=== PATIENT | female | born 1990 | race Caucasian/White ===

== ENCOUNTER 2017-11-09 03:05 | Emergency (ER) | payer MEDICAID ==
[~2017-11-09] VITALS: Ht 165.1 cm; Wt 76.4 kg
[2017-11-09] MEDS ORDERED: BACTRIM DS1 TAB PO (06:51)
[2017-11-09] MEDS ORDERED: CLARITHROMYC500 MG PO (06:51)
[2017-11-09 07:03] VITALS: BP 91/52
== END 2017-11-09 07:57 | disposition home or self-care (01) ==
LOC: ED 03:05
DX: J18.9 Pneumonia, unspecified organism (principal); L02.11 Cutaneous abscess of neck

== ENCOUNTER 2018-01-12 20:03 | Emergency (ER) | payer MEDICAID ==
[~2018-01-12] VITALS: Ht 165.1 cm; Wt 77.2 kg
[~2018-01-12 20:03] MED LIST: BACTRIM DS1 TAB PO; CLARITHROMYC500 MG PO
[2018-01-12] MEDS ORDERED: LEVOTHYROXINE175 MCG PO (20:16)
[2018-01-12 20:43] LABS: IMMATURE GRANULOCYTES 0.4 % (0.0-5.0); MEAN CELL VOLUME 84.7 fL CALC (80.0-100.0); NEUT# 11.29 thou/uL (2.00-7.15); RED BLOOD COUNT 4.97 mill/uL (4.20-5.60); RED CELL DISTRI WIDTH 15.3 % (11.5-15.5)
[2018-01-12 20:48] LABS: HEMATOCRIT 42.1 % (37.0-47.0); HEMOGLOBIN 13.9 g/dl (12.0-16.0)
[2018-01-12 20:48] LABS: URINE BILIRUBIN - DIPSTICK NEGATIVE (NEGATIVE); URINE BLOOD DIPSTICK NEGATIVE (NEGATIVE); URINE COLOR YELLOW; URINE GLUCOSE - DIPSTICK NEGATIVE (NEGATIVE); URINE KETONE NEGATIVE (NEGATIVE); URINE LEUK ESTERASE TRACE (NEGATIVE); URINE NITRITE - DIPSTICK NEGATIVE (Negative); URINE PH 7.5 (4.5-8.0); URINE PROTEIN - DIPSTICK 30 mg/dL (NEG-TRACE); URINE SPECIFIC GRAVITY 1.015
[2018-01-12 20:51] LABS: URINE CLARITY CLEAR; URINE RBC 0-2 RBC/hpf (0-5); URINE SQUAMOUS EPITHELIAL CELL FEW EPI/hpf (0-FEW)
[2018-01-12 20:53] LABS: INFLUENZA A NONE DETECTED (NONE DETECT); INFLUENZA B NONE DETECTED (NONE DETECT)
[2018-01-12 20:56] LABS: ALBUMIN 4.3 g/dL (3.2-5.0); ALKALINE PHOSPHATASE 88 u/l (38-126); ANION GAP 17 (6-22 (CALC)); BILIRUBIN, TOTAL 0.3 mg/dL (0.0-1.4); BUN 18 mg/dL (7-17); BUN/CREATININE RATIO 20 (12-20 (CALC)); CARBON DIOXIDE 24 mmol/l (22-30); CHLORIDE 104 mmol/l (95-108); CREATININE 0.9 mg/dL (0.5-1.0); GFR > 60 ML/MIN (>=60 (CALC)); GFR FOR AFR.AMER. > 60 ML/MIN (>=60 (CALC)); POTASSIUM 4.6 mmol/l (3.5-5.1); SGOT/AST 24 u/l (14-36); SGPT/ALT 32 u/l (9-52); SODIUM 141 mmol/l (137-146); TOTAL PROTEIN 7.6 g/dL (6.3-8.2)
[2018-01-12 21:52] VITALS: BP 114/67
== END 2018-01-12 22:07 | disposition home or self-care (01) ==
LOC: ED 20:03
PROVIDERS: Emergency Medicine
DX: J06.9 Acute upper respiratory infection, unspecified (principal); M79.1 Myalgia; F17.210 Nicotine dependence, cigarettes, uncomplicated; R10.9 Unspecified abdominal pain; J02.9 Acute pharyngitis, unspecified; R05 Cough; R09.89 Other specified symptoms and signs involving the circulatory and respiratory systems

== ENCOUNTER 2018-05-21 20:45 | Emergency (ER) | payer OTHER ==
[~2018-05-21] VITALS: Ht 165.1 cm; Wt 79.5 kg
[~2018-05-21 20:45] MED LIST changes: +LEVOTHYROXINE175 MCG PO
[2018-05-21] MEDS ORDERED: VOLTAREN - GENE75 MG PO (21:01)
[2018-05-21] MEDS ORDERED: AMOXICILLIN500 MG PO (21:01)
[2018-05-21 21:30] VITALS: BP 130/83
== END 2018-05-21 21:30 | disposition home or self-care (01) ==
LOC: ED 20:45
DX: K02.9 Dental caries, unspecified (principal); K04.7 Periapical abscess without sinus; F17.210 Nicotine dependence, cigarettes, uncomplicated; K08.89 Other specified disorders of teeth and supporting structures

== ENCOUNTER 2018-12-11 14:58 | Emergency (ER) | payer OTHER ==
[~2018-12-11] VITALS: Ht 165.1 cm; Wt 75.0 kg
[~2018-12-11 14:58] MED LIST changes: +AMOXICILLIN500 MG PO; +VOLTAREN - GENE75 MG PO
[2018-12-11] MEDS ORDERED: [UNRECOGNIZED DRUG - OTHER] EX (15:33)
[2018-12-11] MEDS ORDERED: BENADRYL 50MG C50 MG PO (15:33)
[2018-12-11 15:39] LABS: IMMATURE GRANULOCYTES 0.4 % (0.0-5.0); MEAN CELL VOLUME 85.9 fL CALC (80.0-100.0); MEAN CORPUSCULAR HGB 28.6 pG CALC (26.0-32.0); MEAN CORPUSCULAR HGB CONC 33.3 g/L CALC (32.0-36.0); NEUT# 5.06 thou/uL (2.00-7.15); RED BLOOD COUNT 4.12 mill/uL (4.20-5.60); RED CELL DISTRI WIDTH 14.1 % (11.5-15.5)
[2018-12-11 15:42] LABS: HEMATOCRIT 35.4 % (37.0-47.0); HEMOGLOBIN 11.8 g/dl (12.0-16.0)
[2018-12-11 15:57] VITALS: BP 116/66
[2018-12-11] MEDS ORDERED: CEPHALEXIN500 M1 PO (16:01)
[2018-12-11 16:09] LABS: ALBUMIN 4.1 g/dL (3.2-5.0); ALKALINE PHOSPHATASE 72 u/l (38-126); ANION GAP 12 (6-22 (CALC)); BILIRUBIN, TOTAL 0.4 mg/dL (0.0-1.4); BUN 9 mg/dL (7-17); BUN/CREATININE RATIO 15 (12-20 (CALC)); CARBON DIOXIDE 25 mmol/l (22-30); CHLORIDE 107 mmol/l (95-108); CREATININE 0.6 mg/dL (0.5-1.0); GFR > 60 ML/MIN (>=60 (CALC)); GFR FOR AFR.AMER. > 60 ML/MIN (>=60 (CALC)); POTASSIUM 4.4 mmol/l (3.5-5.1); SGOT/AST 20 u/l (14-36); SODIUM 139 mmol/l (137-146); TOTAL PROTEIN 7.4 g/dL (6.3-8.2)
[2018-12-11 16:22] LABS: PROTHROMBIN TIME 10.1 SECONDS (9.0-12.5)
== END 2018-12-11 16:45 | disposition home or self-care (01) ==
LOC: ED 14:58
PROVIDERS: Emergency Medicine
DX: B85.0 Pediculosis due to Pediculus humanus capitis (principal); T14.8XXA Other injury of unspecified body region, initial encounter; F17.210 Nicotine dependence, cigarettes, uncomplicated; X58.XXXA Exposure to other specified factors, initial encounter

== ENCOUNTER 2018-12-27 18:08 | Emergency (ER) | payer OTHER ==
[~2018-12-27] VITALS: Ht 165.1 cm; Wt 70.0 kg
[~2018-12-27 18:08] MED LIST changes: +BENADRYL 50MG C50 MG PO; +CEPHALEXIN500 M1 PO; +[UNRECOGNIZED DRUG - OTHER] EX
[2018-12-27] MEDS ORDERED: AMPHETAMINE PO (18:34)
[2018-12-27] MEDS ORDERED: DEX PO (18:34)
[2018-12-27] MEDS ORDERED: PERMETHRIN5 % EX (18:38)
[2018-12-27] MEDS ORDERED: LEVOTHYROXIN200 MC2 PO (18:49)
[2018-12-27 19:00] VITALS: BP 128/66
[2018-12-27] MEDS ORDERED: BACTROBAN TOP (19:01)
== END 2018-12-27 19:00 | disposition home or self-care (01) ==
LOC: ED 18:08
DX: B85.0 Pediculosis due to Pediculus humanus capitis (principal); B86 Scabies; F17.200 Nicotine dependence, unspecified, uncomplicated

== ENCOUNTER 2018-12-31 15:19 | Emergency (ER) | payer OTHER ==
[~2018-12-31] VITALS: Ht 165.1 cm; Wt 65.0 kg
[~2018-12-31 15:19] MED LIST changes: +AMPHETAMINE PO; +BACTROBAN TOP; +DEX PO; +LEVOTHYROXIN200 MC2 PO; +PERMETHRIN5 % EX
[2018-12-31] MEDS ORDERED: LEVOTHYROXIN200 MCG PO (15:39)
[2018-12-31] MEDS ORDERED: PAROXETINE HCL30 MG PO (16:07)
[2018-12-31 16:10] VITALS: BP 118/66
== END 2018-12-31 16:10 | disposition home or self-care (01) ==
LOC: ED 15:19
DX: Z76.0 Encounter for issue of repeat prescription (principal); F17.200 Nicotine dependence, unspecified, uncomplicated; F41.9 Anxiety disorder, unspecified; Z91.19 Patient's noncompliance with other medical treatment and regimen

== ENCOUNTER 2018-12-31 17:13 | Emergency (ER) | payer OTHER ==
[~2018-12-31] VITALS: Ht 165.1 cm; Wt 75.0 kg
[~2018-12-31 17:13] MED LIST changes: +LEVOTHYROXIN200 MCG PO; +PAROXETINE HCL30 MG PO
[2018-12-31 18:33] VITALS: BP 128/75
== END 2018-12-31 20:08 | disposition left against medical advice (07) ==
LOC: ED 17:13
DX: F41.9 Anxiety disorder, unspecified (principal); F17.200 Nicotine dependence, unspecified, uncomplicated; Z91.19 Patient's noncompliance with other medical treatment and regimen

== ENCOUNTER 2019-04-08 06:51 | Emergency (ER) | payer SELFPAY ==
[~2019-04-08] VITALS: Ht 165.1 cm; Wt 70.0 kg
[2019-04-08] MEDS ORDERED: CLINDAMYCIN300 M1 PO (07:41)
[2019-04-08 07:46] VITALS: BP 138/66
== END 2019-04-08 07:55 | disposition home or self-care (01) | DRG 159 ==
LOC: ED 06:51
DX: K08.89 Other specified disorders of teeth and supporting structures (principal); F17.200 Nicotine dependence, unspecified, uncomplicated